=== PATIENT | female | born 1960 | race American Indian/Alaskan Native ===

== ENCOUNTER 2018-07-31 07:59 | Day surgery (SDC) | payer BC ==
[2018-06-26 12:39] VITALS: BMI 29.2
[2018-07-31 08:42] VITALS: TEMP 98.7
[2018-07-31] MEDS ORDERED: Propofol 10 mg/ml Inj (20 ML) ONE (10:46)
[2018-07-31] MEDS ORDERED: Midazolam 2 MG/2 ML VIAL ONE (10:46)
[2018-07-31] MEDS ORDERED: Lactated Ringer's 500 ML IV SCH (11:00)
[2018-07-31 12:10] VITALS: O2SAT 100
[2018-07-31 13:14] VITALS: BP 118/67; PULSE 64; RESP 15
== END 2018-07-31 12:35 | disposition home or self-care (01) ==
LOC: C.ENDO 07:59
PROVIDERS: ATTEND Internal Medicine Gastroenterology
DX: Z12.11 Encounter for screening for malignant neoplasm of colon (principal); K62.89 Other specified diseases of anus and rectum; K64.1 Second degree hemorrhoids; Z98.0 Intestinal bypass and anastomosis status; Z86.010 Personal history of colon polyps; K21.0 Gastro-esophageal reflux disease with esophagitis; K29.50 Unspecified chronic gastritis without bleeding; K44.9 Diaphragmatic hernia without obstruction or gangrene; I10 Essential (primary) hypertension; Z72.0 Tobacco use; Z98.890 Other specified postprocedural states; Z79.899 Other long term (current) drug therapy